=== PATIENT | female | born 1995 | race African-American/Black ===

== ENCOUNTER 2022-04-18 14:49 | Inpatient (IN) ==
[2022-04-18] MEDS ORDERED: hydrALAZINE 20 MG/1 ML VIAL IV ONE ×3 (15:22→21:00)
[2022-04-18] MEDS ORDERED: LABETALOL 100 MG TABLET PO SCH (15:30)
[2022-04-18 16:11] LABS: Basophils % 0.2 % (0.0-0.8); Eosinophils % 0.3 % (0.00-10.9); Hematocrit 26.1 VOL% (35.7-47.0); Hemoglobin 8.9 GM/DL (12.0-16.0); Immature Granulocytes % 0.4 %; Immature Granulocytes Absolute 0.04 #; Lymphocytes # 2.6 10*3/uL (1.4-4.0); Lymphocytes % 26.8 % (21.3-54.2); Mean Corpuscular HGB Conc 34.1 GM/DL (32-36); Mean Corpuscular Volume 93.2 FL (87-102); Mean Platelet Volume 12.1 FL (9.6-12.0); Monocytes # 0.7 10*3/uL (0.11-0.8); Neutrophils % 65.3 % (38.7-73.9); Platelet Count 79 T/CUMM (130-400); Red Cell Distribution Width 12.7 % (9.3-17.3); White Blood Count 9.6 T/CUMM (4-12)
[2022-04-18 16:12] LABS: Bacteria,Urine Occasional /HPF (Few); Bilirubin,Urine Negative (Negative); Blood, Urine Moderate mg/dL (Negative); Glucose,Urine (UA) Negative (Negative); Ketones,Urine Negative (Negative); Mucus,Urine Few /LPF (Occasional); Nitrite,Urine Negative (Negative); Protein,Urine >=300 mg/dL (Negative); RBC,Urine 9 /HPF (0-4); Squamous Epithelial Cell,Urine Few /HPF (0-10); Urine Appearance Clear (Clear); Urine Color Yellow (Yellow); Urine Specific Gravity >= 1.030 (1.001-1.035)
[2022-04-18] MEDS ORDERED: MAGNESIUM SULF RIDER 4 GM/100 ML PREMIX IV ONE (16:21)
[2022-04-18 16:23] LABS: INR 0.8; PT Patient Result 9.3 SECS (10.1-12.1); Partial Thromboplastin Time 25.5 SECS (23.7-32.9)
[2022-04-18] MEDS ORDERED: MAGNESIUM SULF DRIP 40 GM/1,000 ML ML IV SCH (16:30)
[2022-04-18 16:32] LABS: Alanine Aminotransferase 16 U/L (13-56); Albumin 1.9 G/DL (3.4-5.0); Alkaline Phosphatase 149 U/L (45-117); Aspartate Amino Transferase 25 U/L (0-37); Bilirubin,Direct < 0.100 MG/DL (0.0-0.20); Bilirubin,Total < 0.39 MG/DL (0.20-1.00); Blood Urea Nitrogen 14 MG/DL (7-18); Calcium 7.5 MG/DL (8.5-10.1); Carbon Dioxide 22 MMOL/L (21-32); Chloride 111 MMOL/L (98-107); Glucose 84 MG/DL (74-106); Osmolality,Calculated 280.3 MOS/KG (273-304); Potassium 3.7 MMOL/L (3.5-5.1); Sodium 141 MMOL/L (136-145); Total Protein 5.1 G/DL (6.4-8.2); Uric Acid 6.6 MG/DL (2.6-6.0)
[2022-04-18] MEDS ORDERED: FAMOTIDINE 20 MG TABLET ONE (16:45)
[2022-04-18] MEDS ORDERED: CITRIC ACID/SODIUM CITRATE 30 ML UDCUP ONE (16:45)
[2022-04-18 16:50] LABS: Calcium Urine Quant < 5.0 MG/DL
[2022-04-18] MEDS ORDERED: OXYTOCIN/LR 20 UNIT/1,000 ML BAG IV ONE ×3 (17:06→18:11)
[2022-04-18] MEDS ORDERED: CLINDAMYCIN INJ 900 MG/50 ML PREMIX IV ONE (17:08)
[2022-04-18] MEDS ORDERED: miSOPROStoL 200 MCG TABLET RECTAL PRN (17:17)
[2022-04-18] MEDS ORDERED: TRANEXAMIC ACID 1,000 MG in SODIUM CHLORIDE 0.9% 100 ML IV PRN (17:17)
[2022-04-18] MEDS ORDERED: LACTATED RINGERS 500 ML IV PRN (17:17)
[2022-04-18] MEDS ORDERED: CARBOPROST TROMETHAMINE 250 MCG/ML AMP IM PRN (17:17)
[2022-04-18] MEDS ORDERED: METHYLERGONOVINE 0.2 MG/1 ML AMP IM PRN (17:17)
[2022-04-18] MEDS ORDERED: LACTATED RINGERS 250 ML IV ONE (17:17)
[2022-04-18] MEDS ORDERED: ONDANSETRON 4 MG/2 ML VIAL ONE (17:23)
[2022-04-18] MEDS ORDERED: SEVOFLURANE 1 UNIT/15 MINUTE INH ONE ×2 (17:23→18:12)
[2022-04-18] MEDS ORDERED: MIDAZOLAM 2 MG/2 ML VIAL ONE (17:23)
[2022-04-18] MEDS ORDERED: SUCCINYLCHOLINE 200 MG/10 ML VIAL ONE (17:23)
[2022-04-18] MEDS ORDERED: fentaNYL 100 MCG/2 ML VIAL ONE (17:23)
[2022-04-18] MEDS ORDERED: propofoL 200 MG/20 ML VIAL IV ONE ×2 (17:23→17:27)
[2022-04-18] MEDS ORDERED: HYDROmorphone 1 MG/1 ML SYRINGE ONE (17:26)
[2022-04-18] MEDS ORDERED: ACETAMINOPHEN INJ 1,000 MG/100 ML VIAL IV ONE (17:47)
[2022-04-18] MEDS ORDERED: oxyCODONE/ACETAMINOPHEN 5-325 MG TABLET PO PRN ×2 (18:11)
[2022-04-18] MEDS ORDERED: HYDROCORTISONE 2.5% RECTAL CREAM 30 GM TUBE TOP PRN (18:11)
[2022-04-18] MEDS ORDERED: RHO(D) IMMUNE GLOBULIN 300 MCG SYRINGE IM ONE (18:11)
[2022-04-18] MEDS ORDERED: BENZOCAINE 20%/MENTHOL 0.5% SPRAY 56 GM CAN TOP PRN (18:11)
[2022-04-18] MEDS ORDERED: ONDANSETRON 4 MG/2 ML VIAL IV PRN (18:11)
[2022-04-18] MEDS ORDERED: WITCH HAZEL PADS 100/JAR TOP PRN (18:11)
[2022-04-18] MEDS ORDERED: LANOLIN 50% CREAM 0.3 OZ TUBE TOP PRN (18:11)
[2022-04-18] MEDS ORDERED: MEASLES/MUMPS/RUBELLA VACCINE 0.5 ML VIAL SUBCUT ONE (18:11)
[2022-04-18] MEDS ORDERED: ACETAMINOPHEN 325 MG TABLET PO PRN (18:11)
[2022-04-18] MEDS ORDERED: DIPH/TET/ACEL PERT BOOSTER VACCINE 0.5 ML VIAL IM ONE (18:11)
[2022-04-18] MEDS ORDERED: BISACODYL 10 MG SUPP RECTAL PRN (18:11)
[2022-04-18] MEDS ORDERED: LABETALOL 100 MG/20 ML VIAL IV ONE ×4 (18:51→20:00)
[2022-04-18] MEDS: LACTATED RINGERS 1,000 ML IV SCH (19:00)
[2022-04-18] MEDS ORDERED: LABETALOL 200 MG TABLET PO SCH (19:03)
[2022-04-18] MEDS ORDERED: SODIUM CHLORIDE 0.9% 1,000 ML IV PRN (19:11)
[2022-04-18] MEDS ORDERED: MORPHINE 2 MG/1 ML SYRINGE IV ONE (19:25)
[2022-04-18] MEDS ORDERED: NALOXONE 0.4 MG/ML VIAL IV PRN (19:29)
[2022-04-18] MEDS ORDERED: HYDROmorphone PCA 30 MG/30 ML SYRINGE IV SCH (19:30)
[2022-04-18 19:34] LABS: Basophils % 0.2 % (0.0-0.8); Eosinophils % 0.3 % (0.00-10.9); Hematocrit 26.5 VOL% (35.7-47.0); Hemoglobin 9.3 GM/DL (12.0-16.0); Lymphocytes # 2.6 10*3/uL (1.4-4.0); Lymphocytes % 23.7 % (21.3-54.2); Mean Corpuscular HGB Conc 35.1 GM/DL (32-36); Mean Corpuscular Volume 94.3 FL (87-102); Mean Platelet Volume 11.6 FL (9.6-12.0); Monocytes # 0.5 10*3/uL (0.11-0.8); Monocytes % 4.7 % (1.7-12.7); Neutrophils % 70.3 % (38.7-73.9); Platelet Count 90 T/CUMM (130-400); Red Blood Count 2.81 MC/CUMM (3.8-5.5); Red Cell Distribution Width 12.8 % (9.3-17.3)
[2022-04-18 19:49] LABS: INR 0.8; PT Patient Result 8.8 SECS (10.1-12.1); Partial Thromboplastin Time 25.5 SECS (23.7-32.9)
[2022-04-18 19:52] LABS: Alanine Aminotransferase 18 U/L (13-56); Albumin 1.9 G/DL (3.4-5.0); Alkaline Phosphatase 142 U/L (45-117); Aspartate Amino Transferase 44 U/L (0-37); Bilirubin,Total < 0.39 MG/DL (0.20-1.00); Blood Urea Nitrogen 13 MG/DL (7-18); Calcium 7.5 MG/DL (8.5-10.1); Carbon Dioxide 22 MMOL/L (21-32); Chloride 109 MMOL/L (98-107); Glucose 104 MG/DL (74-106); Osmolality,Calculated 274.7 MOS/KG (273-304); Sodium 138 MMOL/L (136-145); Total Protein 5.1 G/DL (6.4-8.2)
[2022-04-18] MEDS ORDERED: MORPHINE 2 MG/1 ML SYRINGE IM ONE (20:13)
[2022-04-18] MEDS: GENTAMICIN INJ 130 MG in SODIUM CHLORIDE 0.9% 100 ML IV SCH (20:38)
[2022-04-18 21:02] LABS: Bacteria,Urine Occasional /HPF (Few); Hyaline Casts,Urine 7 /LPF (0-3); Mucus,Urine Occasional /LPF (Occasional); RBC,Urine 1 /HPF (0-4); Squamous Epithelial Cell,Urine Occasional /HPF (0-10)
[2022-04-18 21:04] LABS: Bilirubin,Urine Negative (Negative); Blood, Urine Moderate mg/dL (Negative); Glucose,Urine (UA) Negative (Negative); Ketones,Urine Negative (Negative); Nitrite,Urine Negative (Negative); Protein,Urine >=300 mg/dL (Negative); Urine Appearance Clear (Clear); Urine Color Yellow (Yellow); Urine Specific Gravity >= 1.030 (1.001-1.035); Urine Urobilinogen 0.2 eU/dL (<2.0)
[2022-04-18 21:23] LABS: Barbiturates Screen,Urine Negative (Negative); Benzodiazepines Screen,Urine Positive (Negative); Cannabinoid Screen,Urine Negative (Negative); Opiate Screen,Urine Positive (Negative); Phencyclidine Screen,Urine Negative (Negative); Protein/Creatinine Ratio,Urine 6.2 RATIO
[2022-04-18] MEDS: VANCOMYCIN INJ 1,000 MG in SODIUM CHLORIDE 0.9% 250 ML IV SCH (21:31)
[2022-04-18] MEDS: DOCUSATE SODIUM 100 MG CAPSULE PO SCH (21:40)
[2022-04-18] MEDS: CLINDAMYCIN INJ 900 MG/50 ML PREMIX IV SCH (23:02)
[2022-04-19] MEDS ORDERED: hydrALAZINE 20 MG/1 ML VIAL IV ONE ×2 (02:00→06:36)
[2022-04-19] MEDS: LABETALOL 100 MG TABLET PO SCH ×3 (02:38→20:30)
[2022-04-19 02:48] LABS: Basophils % 0.2 % (0.0-0.8); Hematocrit 26.1 VOL% (35.7-47.0); Hemoglobin 9.1 GM/DL (12.0-16.0); Immature Granulocytes Absolute 0.24 #; Lymphocytes % 8.4 % (21.3-54.2); Mean Corpuscular HGB Conc 34.9 GM/DL (32-36); Mean Corpuscular Volume 93.2 FL (87-102); Mean Platelet Volume 12.3 FL (9.6-12.0); Monocytes # 0.7 10*3/uL (0.11-0.8); Monocytes % 2.8 % (1.7-12.7); Neutrophils % 87.6 % (38.7-73.9); Platelet Count 107 T/CUMM (130-400); Red Cell Distribution Width 12.9 % (9.3-17.3); White Blood Count 23.9 T/CUMM (4-12)
[2022-04-19 02:52] LABS: Alanine Aminotransferase 25 U/L (13-56); Alkaline Phosphatase 145 U/L (45-117); Aspartate Amino Transferase 78 U/L (0-37); Bilirubin,Total < 0.39 MG/DL (0.20-1.00); Blood Urea Nitrogen 13 MG/DL (7-18); Calcium 7.4 MG/DL (8.5-10.1); Carbon Dioxide 22 MMOL/L (21-32); Chloride 107 MMOL/L (98-107); Glucose 111 MG/DL (74-106); Osmolality,Calculated 273.8 MOS/KG (273-304); Potassium 4.3 MMOL/L (3.5-5.1); Sodium 137 MMOL/L (136-145); Total Protein 5.3 G/DL (6.4-8.2)
[2022-04-19] MEDS: ONDANSETRON 4 MG/2 ML VIAL IV PRN ×3 (03:25→21:00)
[2022-04-19 03:41] LABS: Lymphocytes 5 % (20-55); Platelet Estimate Decreased; Total Cells Counted 100
[2022-04-19 03:42] LABS: Hypochromia Slight; Microcytosis Slight
[2022-04-19] MEDS ORDERED: LABETALOL 20 MG/4 ML SYRINGE IV ONE (03:45)
[2022-04-19] MEDS ORDERED: PROMETHAZINE INJ 12.5 MG in SODIUM CHLORIDE 0.9% 50 ML IV PRN (04:04)
[2022-04-19] MEDS: GENTAMICIN INJ 130 MG in SODIUM CHLORIDE 0.9% 100 ML IV SCH ×3 (05:25→20:55)
[2022-04-19] MEDS: LACTATED RINGERS 1,000 ML IV SCH ×2 (07:19→07:43)
[2022-04-19] MEDS: CLINDAMYCIN INJ 900 MG/50 ML PREMIX IV SCH ×3 (08:39→23:03)
[2022-04-19] MEDS: DOCUSATE SODIUM 100 MG CAPSULE PO SCH ×2 (08:43→20:30)
[2022-04-19] MEDS: VANCOMYCIN INJ 1,000 MG in SODIUM CHLORIDE 0.9% 250 ML IV SCH ×2 (09:22→21:55)
[2022-04-19] MEDS ORDERED: METHYLDOPA 500 MG TABLET PO PRN (10:07)
[2022-04-19] MEDS: NIFEdipine 10 MG CAPSULE PO PRN (17:51)
[2022-04-19] MEDS ORDERED: HYDROmorphone 1 MG/1 ML SYRINGE IV ONE (20:23)
[2022-04-19] MEDS ORDERED: SIMETHICONE CHEW 80 MG TABLET PO PRN (20:23)
[2022-04-19] MEDS: IBUPROFEN 800 MG TABLET PO PRN (21:56)
[2022-04-19] MEDS ORDERED: MAGNESIUM HYDROXIDE SUSP 30 ML UDCUP PO PRN (22:54)
[2022-04-20] MEDS: LABETALOL 100 MG TABLET PO SCH ×2 (04:03→11:41)
[2022-04-20] MEDS: GENTAMICIN INJ 130 MG in SODIUM CHLORIDE 0.9% 100 ML IV SCH ×2 (04:07→12:54)
[2022-04-20] MEDS: IBUPROFEN 800 MG TABLET PO PRN ×3 (05:07→20:36)
[2022-04-20] MEDS: CLINDAMYCIN INJ 900 MG/50 ML PREMIX IV SCH ×3 (06:21→23:42)
[2022-04-20] MEDS: DOCUSATE SODIUM 100 MG CAPSULE PO SCH ×2 (09:09→20:36)
[2022-04-20] MEDS: VANCOMYCIN INJ 1,000 MG in SODIUM CHLORIDE 0.9% 250 ML IV SCH ×2 (09:43→22:14)
[2022-04-20 12:53] LABS: Basophils % 0.2 % (0.0-0.8); Eosinophils % 0.1 % (0.00-10.9); Hematocrit 20.7 VOL% (35.7-47.0); Immature Granulocytes % 1.9 %; Immature Granulocytes Absolute 0.34 #; Lymphocytes % 16.3 % (21.3-54.2); Mean Corpuscular HGB Conc 33.8 GM/DL (32-36); Mean Corpuscular Volume 97.6 FL (87-102); Monocytes # 0.9 10*3/uL (0.11-0.8); NRBC # 0.07 10*3/uL; Neutrophils % 76.5 % (38.7-73.9); Platelet Count 149 T/CUMM (130-400); Red Blood Count 2.12 MC/CUMM (3.8-5.5); Red Cell Distribution Width 13.6 % (9.3-17.3); White Blood Count 18.3 T/CUMM (4-12)
[2022-04-20 13:14] LABS: Alanine Aminotransferase 23 U/L (13-56); Alkaline Phosphatase 129 U/L (45-117); Aspartate Amino Transferase 51 U/L (0-37); Bilirubin,Total < 0.39 MG/DL (0.20-1.00); Blood Urea Nitrogen 14 MG/DL (7-18); Calcium 7.5 MG/DL (8.5-10.1); Carbon Dioxide 25 MMOL/L (21-32); Chloride 110 MMOL/L (98-107); Glucose 91 MG/DL (74-106); Osmolality,Calculated 279.4 MOS/KG (273-304); Potassium 4.5 MMOL/L (3.5-5.1); Sodium 140 MMOL/L (136-145); Total Protein 5.4 G/DL (6.4-8.2)
[2022-04-20] MEDS ORDERED: GENTAMICIN INJ 350 MG in SODIUM CHLORIDE 0.9% 100 ML IV SCH (14:00)
[2022-04-20] MEDS ORDERED: LABETALOL 200 MG TABLET PO SCH (14:13)
[2022-04-20] MEDS ORDERED: MAGNESIUM HYDROXIDE SUSP 30 ML UDCUP PO ONE (14:14)
[2022-04-20] MEDS: LABETALOL 200 MG TABLET PO SCH (20:35)
[2022-04-20] MEDS: GENTAMICIN INJ 350 MG in SODIUM CHLORIDE 0.9% 100 ML IV SCH (20:42)
[2022-04-21] MEDS: CLINDAMYCIN INJ 900 MG/50 ML PREMIX IV SCH ×2 (06:31→14:44)
[2022-04-21] MEDS: IBUPROFEN 800 MG TABLET PO PRN ×3 (06:39→21:10)
[2022-04-21 06:57] LABS: Basophils % 0.1 % (0.0-0.8); Eosinophils % 0.2 % (0.00-10.9); Immature Granulocytes % 1.5 %; Immature Granulocytes Absolute 0.22 #; Lymphocytes # 3.4 10*3/uL (1.4-4.0); Lymphocytes % 22.7 % (21.3-54.2); Mean Corpuscular HGB Conc 33.5 GM/DL (32-36); Mean Corpuscular Volume 98.9 FL (87-102); Mean Platelet Volume 11.1 FL (9.6-12.0); NRBC # 0.09 10*3/uL; Neutrophils % 68.5 % (38.7-73.9); Platelet Count 138 T/CUMM (130-400); Red Blood Count 1.75 MC/CUMM (3.8-5.5); Red Cell Distribution Width 13.6 % (9.3-17.3); White Blood Count 14.8 T/CUMM (4-12)
[2022-04-21 06:59] LABS: Hematocrit 17.3 VOL% (35.7-47.0); Hemoglobin 5.8 GM/DL (12.0-16.0)
[2022-04-21] MEDS ORDERED: SODIUM CHLORIDE 0.9% 1,000 ML IV PRN (07:13)
[2022-04-21] MEDS ORDERED: FUROSEMIDE 40 MG/4 ML VIAL IV ONE (08:05)
[2022-04-21] MEDS: DOCUSATE SODIUM 100 MG CAPSULE PO SCH ×2 (08:19→21:03)
[2022-04-21] MEDS: LABETALOL 200 MG TABLET PO SCH ×2 (08:19→21:05)
[2022-04-21] MEDS: NIFEdipine 10 MG CAPSULE PO PRN (08:19)
[2022-04-21] MEDS: VANCOMYCIN INJ 1,000 MG in SODIUM CHLORIDE 0.9% 250 ML IV SCH ×2 (08:26→22:00)
[2022-04-21] MEDS ORDERED: diphenhydrAMINE CAP 25 MG CAPSULE PO ONE (09:59)
[2022-04-21 16:54] LABS: Basophils % 0.2 % (0.0-0.8); Eosinophils # 0.1 10*3/uL (0.0-0.87); Eosinophils % 0.3 % (0.00-10.9); Hematocrit 23.9 VOL% (35.7-47.0); Hemoglobin 8.2 GM/DL (12.0-16.0); Immature Granulocytes % 1.1 %; Immature Granulocytes Absolute 0.16 #; Lymphocytes # 3.3 10*3/uL (1.4-4.0); Lymphocytes % 22.6 % (21.3-54.2); Mean Corpuscular HGB Conc 34.3 GM/DL (32-36); Mean Corpuscular Volume 92.3 FL (87-102); Mean Platelet Volume 10.2 FL (9.6-12.0); Monocytes # 1.1 10*3/uL (0.11-0.8); Monocytes % 7.4 % (1.7-12.7); NRBC # 0.15 10*3/uL; Neutrophils % 68.4 % (38.7-73.9); Platelet Count 147 T/CUMM (130-400); Red Blood Count 2.59 MC/CUMM (3.8-5.5); Red Cell Distribution Width 16.4 % (9.3-17.3); White Blood Count 14.5 T/CUMM (4-12)
[2022-04-21] MEDS: GENTAMICIN INJ 350 MG in SODIUM CHLORIDE 0.9% 100 ML IV SCH (20:33)
[2022-04-22] MEDS: CLINDAMYCIN INJ 900 MG/50 ML PREMIX IV SCH (03:17)
[2022-04-22] MEDS ORDERED: CLINDAMYCIN INJ 900 MG/50 ML PREMIX IV SCH (03:30)
[2022-04-22] MEDS: NIFEdipine 10 MG CAPSULE PO PRN (04:51)
[2022-04-22] MEDS ORDERED: FUROSEMIDE 40 MG/4 ML VIAL IV ONE (08:00)
[2022-04-22] MEDS: LABETALOL 200 MG TABLET PO SCH (08:00)
[2022-04-22 08:38] VITALS: BP 139/81
[2022-04-22] MEDS: VANCOMYCIN INJ 1,000 MG in SODIUM CHLORIDE 0.9% 250 ML IV SCH (08:45)
[2022-04-22] MEDS ORDERED: POTASSIUM CHLORIDE 20 MEQ TABLET PO ONE (09:08)
[2022-04-22] MEDS: DOCUSATE SODIUM 100 MG CAPSULE PO SCH (09:18)
== END 2022-04-22 14:10 | disposition home or self-care (01) | DRG 788 ==
LOC: N.LDOUT 14:49 → N.LD 14:51 → N.ICU 04-19 02:13 → N.OB 04-19 12:03
PROVIDERS: ADMIT Specialist; ATTEND Specialist
PROC: LDCSECT (ICD-10-PCS; 2022-04-18 16:30)